=== PATIENT | male | born 1995 | race Hispanic/Latino ===

== ENCOUNTER 2019-02-23 21:32 | Inpatient (IN) | payer OTHER ==
[~2019-02-23] VITALS: Ht 167.6 cm; Wt 98.9 kg
[2019-02-23] MEDS ORDERED: ONDANSETRON HCL INJ 2MG/ML 2ML 2 MG/ML VIAL IV STA (22:09)
[2019-02-23] MEDS ORDERED: ACETAMINOPHEN 1000 MG/100 ML IV STA (22:09)
[2019-02-23] MEDS ORDERED: SODIUM CHLORIDE 0.9% 1000ML 1,000 ML IV ONE (22:15)
[2019-02-23 22:40] LABS: BASOPHILS % 0.3 % (0.0-1.0); EOSINOPHILS # (AUTO) 0.1 (0.0-0.4); EOSINOPHILS % 0.8 % (0.0-6.0); HEMATOCRIT 44.2 % (38.2-49.6); HEMOGLOBIN 15.7 g/dL (14.0-18.0); LYMPHOCYTES # (AUTO) 1.9 (1.0-3.2); LYMPHOCYTES % 15.7 % (18.0-39.1); MEAN CORPUSCULAR HEMOGLOBIN 31.7 pg (28-32); MEAN CORPUSCULAR HGB CONC 35.5 g/dL (31-35); MEAN CORPUSCULAR VOLUME 89.3 fL (81-99); MONOCYTES % 8.3 % (4.4-11.3); NEUTROPHILS # (AUTO) 8.9 (2.1-6.9); NEUTROPHILS % 74.5 % (38.7-80.0); PLATELET COUNT 185 x10e3/uL (140-360); RED BLOOD COUNT 4.95 x10e6/uL (4.3-5.7); RED CELL DISTRIBUTION WIDTH 13.2 % (11.7-14.4)
[2019-02-23 22:43] LABS: BILIRUBIN,URINE NEGATIVE (NEGATIVE); CLARITY,URINE CLEAR (CLEAR); COLOR,URINE YELLOW (YELLOW); LEUKOCYTE ESTERASE ,URINE NEGATIVE (NEGATIVE); NITRITE,URINE NEGATIVE (NEGATIVE); PROTEIN,URINE DIPSTICK NEGATIVE (NEGATIVE); URINE UROBILINOGEN 0.2 mg/dL (0.2 - 1)
[2019-02-23 22:48] LABS: KETONES,URINE 2+ (NEGATIVE)
[2019-02-23 22:49] LABS: AMYLASE 76 U/L (25-125)
[2019-02-23 22:58] LABS: BACTERIA,URINE RARE /HPF; EPITHELIAL CELLS,URINE RARE /LPF; RBC,URINE 0-5 /HPF (0-5); WBC,URINE (MAN) 0-5 /HPF (0-5)
[2019-02-23 23:00] LABS: ALANINE AMINOTRANSFERASE 23 IU/L (0-55); ALBUMIN 3.7 g/dL (3.5-5.0); ALBUMIN/GLOBULIN RATIO 0.7 (0.8-2.0); ALKALINE PHOSPHATASE 108 IU/L (40-150); ANION GAP 27.3 mmol/L (8-16); BLOOD UREA NITROGEN 11 mg/dL (7-26); BUN/CREATININE RATIO 11 (6-25); CALCIUM 9.7 mg/dL (8.4-10.2); CARBON DIOXIDE 12 mmol/L (22-29); CHLORIDE 96 mmol/L (98-107); CREATININE, SERUM 1.01 mg/dL (0.72-1.25); EST GLOMERULAR FILTRATION RATE > 60 ML/MIN (60-); POTASSIUM 4.3 mmol/L (3.5-5.1); SODIUM 131 mmol/L (136-145)
[2019-02-23 23:05] LABS: GLUCOSE 410 mg/dL (74-118)
--- NOTE | 2019-02-23 23:06 | NUR ---
LAB CALLED TO REPORT CRITICAL GLUCOSE LEVEL 410, INFORMED DR. MAHAJAN AND PRIMARY NURSE ENRIQUE HERRING.
[2019-02-23 23:27] LABS: LIPASE 141 U/L (8-78)
[2019-02-23] MEDS ORDERED: SODIUM CHLORIDE 0.9% 50ML 50 ML ONE (23:27)
[2019-02-23] MEDS ORDERED: IOPAMIDOL 370 MG/ML 200 ML INFUS..BTL INJ ONE (23:27)
[2019-02-24] VITALS (21 sets, daily range): BP systolic 92–147; BP diastolic 51–94
[2019-02-24] MEDS ORDERED: POTASSIUM CHLORIDE 20MEQ/100ML 200 ML IV PRN (00:15)
[2019-02-24] MEDS ORDERED: MAGNESIUM SULF 1GRAM/DEXTROSE 100 ML IV PRN (00:15)
--- NOTE | 2019-02-24 00:21 | Diagnostic Imaging Report ---
EXAM: CT Abdomen and Pelvis WITH contrast INDICATION: ^periumbilical pain, fever ^[id number] ^2345 ^Y COMPARISON: None. TECHNIQUE: Abdomen and pelvis were scanned utilizing a multidetector helical scanner from the lung base to the pubic symphysis after administration of IV contrast. Coronal and sagittal reformations were obtained. Dose modulation, iterative reconstruction, and/or weight based adjustment of the mA/kV was utilized to reduce the radiation dose to as low as reasonably achievable. Routine protocol was performed. Scan was performed when during portal venous phase. IV CONTRAST: 100 mL of Isovue-370 ORAL CONTRAST: Water COMPLICATIONS: None RADIATION DOSE: Total DLP: 733.81 mGy*cm Estimated effective dose: (DLP x 0.015 x size factor) mSv CTDIvol has been reviewed. It is below the limits set by the Radiation Protocol Committee (RPC). FINDINGS: LINES and TUBES: None. LOWER THORAX: Unremarkable HEPATOBILIARY: Hepatic steatosis. No focal hepatic lesions. No biliary ductal dilation. GALLBLADDER: No radio-opaque stones or sludge. No wall thickening. SPLEEN: No splenomegaly. PANCREAS: Peripancreatic edema. No focal masses, areas of decreased enhancement, or ductal dilatation. ADRENALS: No adrenal nodules KIDNEYS/URETERS: Kidneys enhance symmetrically. No hydronephrosis. No cystic or solid mass lesions. No stones. GI TRACT: No abnormal distention, wall thickening, or evidence of bowel obstruction. Appendix is normal. PELVIC ORGANS/BLADDER: Unremarkable. LYMPH NODES: No lymphadenopathy. VESSELS: Unremarkable. PERITONEUM / RETROPERITONEUM: No free air or fluid. BONES: Unremarkable. SOFT TISSUES: Unremarkable. IMPRESSION: 1. Acute pancreatitis. 2. Hepatic steatosis. Signed by: Dr. Haim Eddy MD on 02/24/2019 12:17 AM
[2019-02-24] MEDS ORDERED: MORPHINE SULFATE INJ 4 MG/ML INJ 1ML IV PRN (00:45)
[2019-02-24] MEDS ORDERED: ONDANSETRON HCL INJ 2MG/ML 2ML 2 MG/ML VIAL IV PRN (00:45)
[2019-02-24] MEDS: SODIUM CHLORIDE 0.9% 1000ML 1,000 ML IV SCH ×6 (00:48→19:52)
--- OUTSIDE RECORDS SUMMARY | 2019-02-24 00:52 | XMS REPORT ---
Author Author [facility] Address Unknown Phone Unavailable Care Team Providers Care Cash Manager Name Role Phone Gabriel MAHAJAN Unavailable Unavailable Problems This patient has no known problems. Allergies, Adverse Reactions, Alerts This patient has no known allergies or adverse reactions. Medications This patient has no known medications. Results Test Description Test Time Test Comments Text Results Atomic Results Result Comments CT ABDOMEN/PELVIS W 2019-02-24 00:11:00 [place] [address] Patient Name: MARGY GARNETT MR #: [id number] : 1995 Age/Sex: 23/M Req #: [id number] Adm Physician: Ordered by: KEYON MAHAJAN MD Report #: [id number] Location: ER Room/Bed: Procedure: [id number] CT/CT ABDOMEN/PELVIS W Exam Date: 02/23/19 Exam Time: 2344 REPORT STATUS: Signed EXAM: CT Abdomen and Pelvis WITH contrast INDIC ATION: periumbilical pain, fever [id number] Y COMPARISON: None. TECHNIQUE: Abdomen and pelvis were scanned utilizing a multidetector helical scanner from the lung base to the pubic symphysis after administration of IV contrast. Coronal and sagittal reformations were obtained. Dose modulation, iterative reconstruction, and/or weight based adjustment of the mA/kV was utilized to reduce the radiation dose to as low as reasonably achievable. Routine protocol was performed. Scan was performed when during portal venous phase. IV CONTRAST: 100 mL of Isovue-370 ORAL CONTRAST: Water COMPLICATIONS: None RADIATION DOSE: Total DLP: 733.81 mGy*cm Estimated effective dose: (DLP x 0.015 x size factor) mSv CTDIvol has been reviewed. It is below the limits set by the Radiation Protocol Committee (RPC). FINDINGS: LINES and TUBES: None. LOWER THORAX: Unremarkable HEPATOBILIARY: Hepatic steatosis. No focal hepatic lesions. No biliary ductal dilation. GALLBLADDER: No radio-opaque stones or sludge. No wall thickening. SPLEEN: No splenomegaly. PANCREAS: Peripancreatic edema. No focal masses, areas of decreased enhancement, or ductal dilatation. ADRENALS: No adrenal nodules KIDNEYS/URETERS: Kidneys enhance symmetrically. No hydronephrosis. No cystic or solid mass lesions. No stones. GI TRACT: No abnormal distention, wall thickening, or evidence of bowel obstruction. Appendix is normal. PELVIC ORGANS/BLADDER: Unremarkable. LYMPH NODES: No lymphadenopathy. VESSELS: Unremarkable. PERITONEUM / RETROPERITONEUM: No free air or fluid. BONES: Unremarkable. SOFT TISSUES: Unremarkable. IMPRESSION: 1. Acute pancreatitis. 2. Hepatic steatosis. Signed by: Dr. Haim Eddy MD on 02/24/2019 12:17 AM Dictated By: HAIM EDDY MD Transcribed By: KACIE on 02/24/1916 COPY TO: KEYON MAHAJAN MD
[2019-02-24] MEDS: INSULIN REGULAR, HUMAN 3ML VL 100 UNIT in SODIUM CHLORIDE 0.9% 99 ML IV SCH ×4 (00:57→09:50)
--- NOTE | 2019-02-24 03:00 | NUR ---
Received to 194 from ER for DKA. Placed on EKG, pulse ox & NBP for monitoring. IV NS @ 250ml/hr & Insulin @ 10 units/hr. Admission history, vaccine history & Initial admission assessment completed.
[2019-02-24] MEDS ORDERED: [UNRECOGNIZED DRUG - OTHER] PO (03:19)
--- NOTE | 2019-02-24 03:25 | NUR ---
BS 120. IVF changed to D5 1/2 @ 100ml/hr.
[2019-02-24] MEDS: DEXTROSE 5%/0.45% SOD CHL 1,000 ML IV SCH ×6 (03:40→19:53)
[2019-02-24 05:27] LABS: ANION GAP 23.8 mmol/L (8-16); BLOOD UREA NITROGEN 9 mg/dL (7-26); BUN/CREATININE RATIO 12 (6-25); CALCIUM 8.8 mg/dL (8.4-10.2); CARBON DIOXIDE 13 mmol/L (22-29); CHLORIDE 102 mmol/L (98-107); CREATININE, SERUM 0.73 mg/dL (0.72-1.25); EST GLOMERULAR FILTRATION RATE > 60 ML/MIN (60-); GLUCOSE 103 mg/dL (74-118); MAGNESIUM 2.7 MG/DL (1.3-2.1); POTASSIUM 3.8 mmol/L (3.5-5.1); SODIUM 135 mmol/L (136-145)
--- NOTE | 2019-02-24 07:42 | NUR ---
0715: blood glucose 117mg/dl increased d5 1/2ns to 175ml/hr from 150ml/hr. no change in insulin gtt rate at 10units/hr
[2019-02-24 08:45] LABS: ANION GAP 18.5 mmol/L (8-16); BLOOD UREA NITROGEN 8 mg/dL (7-26); BUN/CREATININE RATIO 11 (6-25); CARBON DIOXIDE 17 mmol/L (22-29); CHLORIDE 103 mmol/L (98-107); CREATININE, SERUM 0.72 mg/dL (0.72-1.25); EST GLOMERULAR FILTRATION RATE > 60 ML/MIN (60-); GLUCOSE 117 mg/dL (74-118); MAGNESIUM 2.7 MG/DL (1.3-2.1); POTASSIUM 3.5 mmol/L (3.5-5.1); SODIUM 135 mmol/L (136-145)
--- NOTE | 2019-02-24 09:15 | NUR ---
09:15AM BLOOD GLUCOSE 129MG/DL INCREASED D5 1/2NS RATE TO 200ML/HR. NO CHANGE IN INSULIN RATE
--- NOTE | 2019-02-24 11:20 | NUR ---
1120AM BLOOD GLUCOSE 134MG/DL. INCREASED D5 1/2NS RATE TO 225ML/HR PER DKA PROTOCOL MD ORDER. NO CHANGE IN INSULIN RATE.
[2019-02-24 12:33] LABS: ANION GAP 15.6 mmol/L (8-16); BLOOD UREA NITROGEN 5 mg/dL (7-26); BUN/CREATININE RATIO 7 (6-25); CALCIUM 9.1 mg/dL (8.4-10.2); CARBON DIOXIDE 19 mmol/L (22-29); CHLORIDE 103 mmol/L (98-107); EST GLOMERULAR FILTRATION RATE > 60 ML/MIN (60-); GLUCOSE 145 mg/dL (74-118); MAGNESIUM 2.5 MG/DL (1.3-2.1); POTASSIUM 3.6 mmol/L (3.5-5.1); SODIUM 134 mmol/L (136-145)
--- NOTE | 2019-02-24 13:15 | NUR ---
1315 BLOOD GLUCOSE 141MG/DL. NO CHANGE IN RATE OF IVF'S OR INSULIN. AWARE.
--- NOTE | 2019-02-24 14:53 | NUR ---
Nutrition Screen Note RD Recommendation for Physician: -Advance diet as tolerated to ADA/ low fat diet -Pt was not interested in any diet education. Handouts were given. Plan of Care: RD following, monitoring for tolerance and adequacy Nutrition reason for involvement: Diagnosis DKA, pancreatitis Primary Diagnose(s): DKA, Pancreatitis (alcohol, acute) PMH: DM Ht: 66in Wt: 218lb BMI: 35.2kg/m2 IBW: 142lb +/- 10% RD Assessment: (02/24) Chart reviewed. Labs and meds reviewed. 23yo M, who was admitted from home for DKA and pancreatitis. HbA1c at 11.4%. Lipase has trend down to normal. BG has trend down to 145 today. Visited pt in the room. Pt hasnt started on his liquid diet. 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 Pt has been drinking 5-6 cans of beer for over a year. Pt had some unexplained weight loss for the last 2 months. However, pt is not interested in any diet education or nutrition intervention during my visit. Handouts on low fat diet and alcohol vs DM were left on bedside. Will continue to monitor and follow. Current Diet: clear liquid diet Malnutrition Evaluation (02/24/2019) The patient does not meet criteria for a specified degree of malnutrition at this time. Will re-evaluate at follow-up as appropriate. Diet Education Needs Assessment: Diet education indicated, pt is not interested. Nutrition Care Level: low Signed: Savannah Pires, MS, RD, LD
[2019-02-24 17:10] LABS: ANION GAP 14.5 mmol/L (8-16); BLOOD UREA NITROGEN < 5 mg/dL (7-26); CALCIUM 9.3 mg/dL (8.4-10.2); CARBON DIOXIDE 21 mmol/L (22-29); CHLORIDE 103 mmol/L (98-107); CREATININE, SERUM 0.73 mg/dL (0.72-1.25); EST GLOMERULAR FILTRATION RATE > 60 ML/MIN (60-); GLUCOSE 134 mg/dL (74-118); MAGNESIUM 2.4 MG/DL (1.3-2.1); POTASSIUM 3.5 mmol/L (3.5-5.1); SODIUM 135 mmol/L (136-145)
[2019-02-24 17:11] LABS: BUN/CREATININE RATIO 7 (6-25)
--- NOTE | 2019-02-24 17:45 | NUR ---
dr. quinn updated with patient current status and temperature. blood culters ordered. with other new orders. no s/s alcohol withdrawal noted at this time.
--- NOTE | 2019-02-24 17:49 | Diagnostic Imaging Report ---
EXAMINATION: CHEST SINGLE (PORTABLE) INDICATION: Fever COMPARISON: FINDINGS: TUBES and LINES: EKG leads overlie the chest. LUNGS: The lung volumes are normal. No focal consolidation or pulmonary edema. PLEURA: No pleural effusion or pneumothorax. HEART AND MEDIASTINUM: The cardiomediastinal silhouette is normal in size and contour. BONES AND SOFT TISSUES: No acute fracture or dislocation. UPPER ABDOMEN: No free air under the diaphragm. IMPRESSION: No focal pneumonia or pulmonary edema. Signed by: Bhumika Natarajan MD on 02/24/2019 5:45 PM
--- NOTE | 2019-02-24 18:16 | NUR ---
Dr. Guadalupe consulted and notified. new orders received for patient.
[2019-02-24] MEDS ORDERED: INSULIN REGULAR, HUMAN 3ML VL 100 UNIT in SODIUM CHLORIDE 0.9% 100 ML IV PRN ×2 (18:30)
[2019-02-24 19:39] LABS: BILIRUBIN,URINE NEGATIVE (NEGATIVE); CLARITY,URINE CLEAR (CLEAR); COLOR,URINE YELLOW (YELLOW); KETONES,URINE NEGATIVE (NEGATIVE); LEUKOCYTE ESTERASE ,URINE NEGATIVE (NEGATIVE); NITRITE,URINE NEGATIVE (NEGATIVE); PROTEIN,URINE DIPSTICK NEGATIVE (NEGATIVE); URINE UROBILINOGEN 0.2 mg/dL (0.2 - 1)
[2019-02-24 19:52] LABS: BACTERIA,URINE RARE /HPF
[2019-02-24] MEDS: PIPER-TAZ 3.375 GM 50 ML IV SCH (20:20)
[2019-02-24] MEDS: ENOXAPARIN SOD INJ 40 MG/0.4 ML SYR SC SCH (20:20)
[2019-02-24 21:39] LABS: ANION GAP 13.4 mmol/L (8-16); BLOOD UREA NITROGEN < 5 mg/dL (7-26); BUN/CREATININE RATIO 7 (6-25); CALCIUM 9.3 mg/dL (8.4-10.2); CARBON DIOXIDE 22 mmol/L (22-29); CHLORIDE 105 mmol/L (98-107); CREATININE, SERUM 0.74 mg/dL (0.72-1.25); EST GLOMERULAR FILTRATION RATE > 60 ML/MIN (60-); GLUCOSE 166 mg/dL (74-118); MAGNESIUM 2.3 MG/DL (1.3-2.1); POTASSIUM 3.4 mmol/L (3.5-5.1); SODIUM 137 mmol/L (136-145)
[2019-02-25] VITALS (21 sets, daily range): BP systolic 100–145; BP diastolic 58–99
[2019-02-25] MEDS: ACETAMINOPHEN 325 MG TAB PO PRN ×2 (00:37→19:40)
--- NOTE | 2019-02-25 00:43 | History and Physical ---
CHIEF COMPLAINT: Abdominal pain and DKA. HISTORY OF PRESENT ILLNESS: 23-year-old male with chronic alcohol abuse, type 2 diabetic diagnosed 6 years ago, very noncompliant, has not taken any of his oral anti-glycemic medications for weeks, comes into the ED with complaints of abdominal pain, decreased oral intake, nausea and vomiting. The patient was found to be in DKA. In the ER, he was started on the insulin protocol. Endocrinology was consulted. Currently, his glucose is better controlled and his gap is closed. The patient endorses he drinks about 8 to 10 beers per day and he has been doing this for years. He does state that he does work on a daily basis. 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 Currently not on any insulin. The patient was seen and evaluated at bedside in the ICU. He is currently doing well with no other complaints. REVIEW OF SYSTEMS: Pertinent positives: Abdominal pain, decreased oral intake. Pertinent negatives: Denies any chest pain, palpitation, dysuria, hematuria, frequency, urgency, lightheadedness, dizziness, cough, congestion, fever, musculoskeletal pain, or any other complaints. The rest of 14-point review of systems have been reviewed with the patient and are negative. ALLERGIES: NO KNOWN DRUG ALLERGIES. HOME MEDICATIONS: None. PAST MEDICAL HISTORY: Type 2 diabetes and chronic alcohol abuse. PAST SURGICAL HISTORY: None. FAMILY HISTORY: Hypertension and diabetes. SOCIAL HISTORY: No drugs. Social smoker. He is a chronic drinker 8 to 10 beers daily. PHYSICAL EXAMINATION: VITAL SIGNS: Temperature is 101.4, pulse 98, respiratory rate is 24, pulse ox 97%, and blood pressure 147/87. LABORATORY DATA: Lab findings show white count 11.9, hemoglobin 15, hematocrit 44, and platelets of 185. Chemistry; sodium 135, potassium 3.5, chloride 103, bicarb 21, anion gap of 14, BUN is less than 5, creatinine is 0.73, glucose is 134. Calcium 9.3, magnesium 2.4, total bilirubin is 0.6, AST is 22. On admission, anion gap was 27, bicarbonate was . Rest of the electrolytes are stable. MICROBIOLOGY: None. Urinalysis 2+ ketones. IMAGING STUDIES: CT abdomen and pelvis acute pancreatitis, hepatic steatosis. Chest x-ray, no focal pulmonary edema. PHYSICAL EXAMINATION: GENERAL: Not in acute distress. Alert and oriented x3. Cooperative on examination. HEENT: Head is normocephalic and atraumatic. Eyes; pupils are equal, round, and reactive to light bilaterally. NECK: Supple. Good range of motion throughout. No evidence of erythema, exudates in the posterior pharynx. Has poor dentition. PULMONARY: Clear to auscultation bilaterally. No wheezing, no rales, no rhonchi, no crackles appreciated. CARDIOVASCULAR: Positive S1 and S2. No murmurs, rubs, or gallops appreciated. ABDOMEN: Soft, nondistended, and nontender to palpation. Bowel sounds present. MUSCULOSKELETAL: Strength is 5/5 throughout. No edema. No evidence of any muscle deficits on examination. No weakness appreciated. NEUROLOGICAL: Cranial nerves 2 through 12 grossly intact. No evidence of any neurological deficits on exam. SKIN: Intact. Warm to touch. Good cap refill. PSYCHIATRIC: Normal affect and mood. EXTREMITIES: No edema. Good range of motion throughout. IMPRESSION: 1. Diabetic ketoacidosis. 2. Chronic alcohol abuse. 3. Acute pancreatitis. 4. Hepatic steatosis. 5. Dehydration with decreased oral intake. 6. He did have a fever of 101.5. PLAN: At this time, the patient is currently on a DKA protocol. His gap is closed. Sugars are better controlled and improved. Endocrinology has been consulted. I had a long discussion with the patient about alcohol cessation. It does not seem like he is interested at all at this time. I will continue to reiterate this on a daily basis. We will continue with clear liquid diet advance as tolerated. He is currently not hungry. He does not have any abdominal pain and his CT imaging is consistent with acute pancreatitis. The patient had a fever of 101.5, I am not sure exactly what this is from because he does not have any current infection, but it could be an inflammation from underlying acute pancreatitis. At this time, we will put him on IV Zosyn. Blood and urine cultures collected. Chest x-ray has been collected as well. I did discuss this with the nurse, but in the event the patient does go into withdrawals from his alcohol, to call me, we could start him on Librium. Currently, he does not have any evidence of DTs. He does drink a 12-pack of beer on a daily basis. Otherwise, we will put him on Lovenox for DVT prophylaxis as well and get a.m. labs. I spent more than 40 minutes of critical care time on this case. MD RA Marcos/YUNIOR /[id number]
[2019-02-25 01:07] LABS: BLOOD UREA NITROGEN < 5 mg/dL (7-26); CHLORIDE 116 mmol/L (98-107); EST GLOMERULAR FILTRATION RATE > 60 ML/MIN (60-); GLUCOSE 145 mg/dL (74-118); SODIUM 141 mmol/L (136-145)
[2019-02-25 01:16] LABS: BUN/CREATININE RATIO 8 (6-25)
[2019-02-25 01:17] LABS: ANION GAP 10.7 mmol/L (8-16); CALCIUM 6.5 mg/dL (8.4-10.2); CARBON DIOXIDE 17 mmol/L (22-29); POTASSIUM 2.7 mmol/L (3.5-5.1)
[2019-02-25] MEDS: PIPER-TAZ 3.375 GM 50 ML IV SCH ×3 (01:20→17:26)
[2019-02-25] MEDS ORDERED: POTASSIUM CHLORIDE 20MEQ/100ML 100 ML ONE (01:26)
[2019-02-25] MEDS ORDERED: SODIUM CHLORIDE 0.9% 250ML 250 ML ONE (01:29)
[2019-02-25 05:26] LABS: BASOPHILS % 0.4 % (0.0-1.0); EOSINOPHILS # (AUTO) 0.2 (0.0-0.4); EOSINOPHILS % 1.3 % (0.0-6.0); HEMATOCRIT 40.2 % (38.2-49.6); HEMOGLOBIN 13.5 g/dL (14.0-18.0); LYMPHOCYTES # (AUTO) 1.9 (1.0-3.2); LYMPHOCYTES % 16.9 % (18.0-39.1); MEAN CORPUSCULAR HEMOGLOBIN 30.7 pg (28-32); MEAN CORPUSCULAR HGB CONC 33.6 g/dL (31-35); MEAN CORPUSCULAR VOLUME 91.4 fL (81-99); MONOCYTES # (AUTO) 1.1 (0.2-0.8); MONOCYTES % 9.6 % (4.4-11.3); NEUTROPHILS # (AUTO) 8.1 (2.1-6.9); NEUTROPHILS % 71.4 % (38.7-80.0); PLATELET COUNT 151 x10e3/uL (140-360); RED CELL DISTRIBUTION WIDTH 13.4 % (11.7-14.4)
[2019-02-25 05:43] LABS: ALANINE AMINOTRANSFERASE 18 IU/L (0-55); ALBUMIN 2.8 g/dL (3.5-5.0); ALBUMIN/GLOBULIN RATIO 0.7 (0.8-2.0); ALKALINE PHOSPHATASE 82 IU/L (40-150); ANION GAP 10.9 mmol/L (8-16); BLOOD UREA NITROGEN < 5 mg/dL (7-26); CALCIUM 9.3 mg/dL (8.4-10.2); CARBON DIOXIDE 24 mmol/L (22-29); CHLORIDE 103 mmol/L (98-107); CREATININE, SERUM 0.79 mg/dL (0.72-1.25); EST GLOMERULAR FILTRATION RATE > 60 ML/MIN (60-); GLUCOSE 198 mg/dL (74-118); POTASSIUM 3.9 mmol/L (3.5-5.1); SODIUM 134 mmol/L (136-145)
[2019-02-25] MEDS: DEXTROSE 5%/0.45% SOD CHL 1,000 ML IV SCH ×2 (05:51→14:38)
[2019-02-25 05:55] LABS: BUN/CREATININE RATIO 6 (6-25)
[2019-02-25 06:11] LABS: CHOL/HDL RATIO 9.7 (3.9-4.7); CHOLESTEROL 290 MD/DL (0-199); HDL CHOLESTEROL 30 MG/DL (40-60); TRIGLYCERIDES 519 MG/DL (0-149)
[2019-02-25] MEDS ORDERED: INSULIN LISPRO 100 UNIT/1 ML 3ML VIAL SQ SCH (14:30)
[2019-02-25 15:06] LABS: FREE T4 (FREE THYROXINE) 0.88 ng/dL (0.8-1.8); THYROID STIMULATING HORMONE 0.963 uIU/mL (0.350-4.940)
[2019-02-25] MEDS: INSULIN LISPRO 100 UNIT/1 ML 3ML VIAL SQ SCH ×3 (16:30→20:33)
--- NOTE | 2019-02-25 16:53 | Consultation ---
DATE OF CONSULTATION: 02/25/2019 Endocrine Consultation The patient of Dr. Gaffney. Thank you very much for referring this patient. HISTORY OF PRESENT ILLNESS: This is a 23-year-old gentleman who is referred to me for evaluation of uncontrolled diabetes mellitus and diabetic ketoacidosis. The patient came to the hospital because of abdominal pain and nausea. On further evaluation, his blood sugar was found to be 410. His anion gap was 27.3. According to the patient, he is a known diabetic for almost 3-4 years and has been on Jardiance. The patient has not taken any medication for about a month to 6 weeks. He also has history of hyperlipidemia. FAMILY HISTORY: Diabetes mellitus. SOCIAL HISTORY: The patient does smoke and he also drinks alcohol. PHYSICAL EXAMINATION: GENERAL: Today, the patient is alert, awake, little bit of pain. He is moderately overweight. VITAL SIGNS: His heart rate is around 100. Blood pressure is 110/70 mmHg. HEENT: Essentially unremarkable. Thyroid is palpable. Clinically, he is near euthyroid. CHEST: Bilateral vesicular breathing. He has mild bronchospasm. CARDIOVASCULAR: First and second heart sounds. There is no third or fourth heart sounds with the systolic grade 2/6. ABDOMEN: Distended abdomen. Slight tenderness in the upper epigastric area. EXTREMITIES: He has evidence of diabetic sensory neuropathy in both lower extremities. LABORATORY DATA: His blood sugars have improved on insulin drip and his anion gap is down to around 10.7. His lipids are elevated. His hemoglobin A1c is 11.4. CLINICAL IMPRESSION: Diabetes mellitus type 2, uncontrolled with complication, diabetic ketoacidosis, hyperlipidemia, rule out pancreatitis. PLAN: At this time is today probably insulin drip. Advance his diet. Monitor his blood sugars closely. The patient is very scared about taking the insulin shots. I have reassured him and the patient needs extensive diabetic and dietary education. Thank you again for referring this patient. I will be following this patient with you. MD JANE Ribeiro/YUNIOR /[id number] VIET
[2019-02-25] MEDS: ENOXAPARIN SOD INJ 40 MG/0.4 ML SYR SC SCH (17:20)
--- NOTE | 2019-02-25 17:37 | NUR ---
Dr. Guadalupe gave orders to progress patients diet. Orders given to d/c insulin drip at 1730 and transition to SQ insulin. Dr. Guadalupe and Dr. Gaffney gave orders for patient to transfer to medical-surgical floor once insulin drip d/c. Patient does not appear to be having any s/s distress at this time. Administering SQ injections teachings and demonstration given to patient and significant other. Will continue to monitor.
--- NOTE | 2019-02-25 19:18 | Progress Note ---
DATE: 02/25/2019 Medicine Progress Note SUBJECTIVE: The patient is doing much better today with no complaints. He is very hungry. He is about to be weaned off the insulin drip. Endocrinology following. PHYSICAL EXAMINATION: VITAL SIGNS: Temperature 100.3, pulse 109, respiratory rate is 17, blood pressure is 144/89. GENERAL: Not in acute distress. Alert and oriented x3. Cooperative on examination. HEENT: Head is normocephalic and atraumatic. Eyes; pupils are equal, round, and reactive to light bilaterally. Extraocular movements are intact bilaterally. Throat, no evidence of erythema or exudates in the posterior pharynx. Has poor dentition. NECK: Supple. Good range of motion. PULMONARY: Clear to auscultation bilaterally. No wheezing, no rales, no rhonchi, no crackles appreciated. CARDIOVASCULAR: Positive S1, S2. No murmurs, rubs, or gallops appreciated. ABDOMEN: Soft, nondistended, and nontender to palpation. Bowel sounds present. MUSCULOSKELETAL: Strength is 5/5 throughout. No evidence of any muscle deficits on examination. No weakness appreciated. NEUROLOGICAL: Cranial nerves 2 through 12 grossly intact. No evidence of any neurological deficits on exam. SKIN: Intact. Warm to touch. Good cap refill. PSYCHIATRIC: Normal affect and mood. EXTREMITIES: No edema. Good range of motion throughout. LABORATORY DATA: His lab findings show white count 9.4, hemoglobin 13.5, hematocrit is 40, platelets of 151. Chemistry; sodium is 134, potassium is 3.9 chloride 103, carbon dioxide 103, anion gap of 10, BUN less than 5, creatinine is 0.79, glucose is 198. MICROBIOLOGY: Blood cultures no growth. IMAGING STUDIES: Chest x-ray shows no focal pneumonia or pulmonary edema. IMPRESSION: 1. Diabetic ketoacidosis. 2. Chronic alcohol abuse. 3. Acute pancreatitis. 4. Hepatic steatosis. 5. Dehydration with decreased oral intake. 6. Fever of unknown etiology. PLAN: At this time, he will be weaned off the DKA protocol per Endocrinology. His diet has been advanced from clear liquid, then will be advanced to solid food, diabetic. He will be on insulin upon discharge. His vital signs are much stable. He did have a temp early this afternoon. Blood cultures were negative. I am concerned that he may be possibly undergoing some underlying withdrawals, but there is no clinical evidence except for fever. We will continue to monitor very closely. We will see if he is able to tolerate his diet well. Continue with IV antibiotics. Blood cultures, no growth. Imaging study shows no evidence of infection at this time. His white count is slightly elevated. We will repeat labs in the morning. He is on Lovenox for DVT prophylaxis. Alcohol cessation was discussed with the patient. MD RA Marcos/YUNIOR /[id number]
[2019-02-25] MEDS ORDERED: INSULIN GLARGINE 100 UNITS/ML VIAL SQ SCH (21:00)
--- NOTE | 2019-02-25 23:00 | NUR ---
RECEIVED PATIENT IN STABLE CONDITION, NO DISTRESS NOTED. PATIENT IS AOX4, GIRLFRIEND IS AT BEDSIDE. BED IS LOCKED AND IN LOWEST POSITION, CALL LIGHT IS WITHIN EASY REACH, WILL CONTINUE TO MONITOR.
--- NOTE | 2019-02-25 23:25 | NUR ---
REMOVED IV FROM PATIENT'S RIGHT AC.
[2019-02-26] VITALS (8 sets, daily range): BP systolic 110–149; BP diastolic 57–96
[2019-02-26] MEDS: ACETAMINOPHEN 325 MG TAB PO PRN ×2 (00:18→21:32)
[2019-02-26] MEDS: DEXTROSE 5%/0.45% SOD CHL 1,000 ML IV SCH ×3 (01:04→21:04)
[2019-02-26] MEDS: PIPER-TAZ 3.375 GM 50 ML IV SCH ×3 (02:21→17:49)
[2019-02-26 05:30] LABS: BASOPHILS % 0.5 % (0.0-1.0); EOSINOPHILS # (AUTO) 0.3 (0.0-0.4); HEMATOCRIT 40.8 % (38.2-49.6); HEMOGLOBIN 13.1 g/dL (14.0-18.0); LYMPHOCYTES # (AUTO) 1.9 (1.0-3.2); LYMPHOCYTES % 21.1 % (18.0-39.1); MEAN CORPUSCULAR HEMOGLOBIN 30.3 pg (28-32); MEAN CORPUSCULAR HGB CONC 32.1 g/dL (31-35); MEAN CORPUSCULAR VOLUME 94.4 fL (81-99); MONOCYTES # (AUTO) 0.9 (0.2-0.8); MONOCYTES % 10.5 % (4.4-11.3); NEUTROPHILS # (AUTO) 5.6 (2.1-6.9); NEUTROPHILS % 64.4 % (38.7-80.0); PLATELET COUNT 147 x10e3/uL (140-360); RED BLOOD COUNT 4.32 x10e6/uL (4.3-5.7); RED CELL DISTRIBUTION WIDTH 13.8 % (11.7-14.4)
[2019-02-26 05:44] LABS: BLOOD UREA NITROGEN 8 mg/dL (7-26); BUN/CREATININE RATIO 11 (6-25); CALCIUM 9.2 mg/dL (8.4-10.2); CARBON DIOXIDE 21 mmol/L (22-29); CHLORIDE 103 mmol/L (98-107); CREATININE, SERUM 0.75 mg/dL (0.72-1.25); EST GLOMERULAR FILTRATION RATE > 60 ML/MIN (60-); GLUCOSE 211 mg/dL (74-118); SODIUM 134 mmol/L (136-145)
[2019-02-26] MEDS: INSULIN LISPRO 100 UNIT/1 ML 3ML VIAL SQ SCH ×7 (08:34→21:00)
[2019-02-26] MEDS: FENOFIBRATE 145 MG TAB PO SCH (08:34)
--- NOTE | 2019-02-26 16:08 | NUR ---
Nutrition Follow-up Note RD Recommendation for Physician: - Rec adding low fat to current ADA diet - RD provided diet education on low fat diet. Plan of Care: RD following, monitoring for tolerance and adequacy, diet education Nutrition reason for involvement: Follow up, RN consult Primary Diagnose(s): DKA, Pancreatitis (alcohol, acute) PMH: DM Ht: 66in Wt: 218lb BMI: 35.2kg/m2 IBW: 142lb +/- 10% RD Assessment: (02/26) Re-visit pt in the room per RN request for diet education. RD provided education on alcohol intake and low fat diet as requested. All questions have been answered. Handouts were provided. Will continue to monitor and follow. (02/24) Chart reviewed. Labs and meds reviewed. 23yo M, who was admitted from home for DKA and pancreatitis. HbA1c at 11.4%. Lipase has trend down to normal. BG has trend down to 145 today. Visited pt in the room. Pt hasnt started on his liquid diet. 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 Pt has been drinking 5-6 cans of beer for over a year. Pt had some unexplained weight loss for the last 2 months. However, pt is not interested in any diet education or nutrition intervention during my visit. Handouts on low fat diet and alcohol vs DM were left on bedside. Will continue to monitor and follow. Current Diet: ADA 2000 Malnutrition Evaluation (02/24/2019) The patient does not meet criteria for a specified degree of malnutrition at this time. Will re-evaluate at follow-up as appropriate. Diet Education Needs Assessment: (02/26) RN requested for RD to revisit for diet education on pancreatitis. (02/24) Diet education indicated, pt is not interested. Learner(s): pt, Time spent: 20 minutes Barriers: none; h/o non-comp Cultural/Language Modifications: No cultural/language modifications noted. Readiness: acceptance Method: explanation/ discussion, handout Topics: DM diet/pancreatitis ed. (alcohol intake, low fat diet, portion control) Understanding/Compliance: fair compliance expected, needs reinforcement, all questions have been answered Nutrition Care Level: low Signed: Savannah Pires, MS, RD, LD
[2019-02-26] MEDS: ENOXAPARIN SOD INJ 40 MG/0.4 ML SYR SC SCH (17:00)
--- NOTE | 2019-02-26 19:05 | Progress Note ---
DATE: 02/26/2019 Medicine Progress Note SUBJECTIVE: The patient is actually doing well today with no complaints. He has been cleared for discharge by Endocrine. The only issues that he still has fever that was overnight. He has no symptoms whatsoever. This could be low-grade fever from underlying acute pancreatitis. He is otherwise tolerating diet well. Insulin scripts have been written in the chart. I will monitor him overnight and see how he does prior to being discharged. PHYSICAL EXAMINATION: VITAL SIGNS: Temperature is 99.6, but T-max was 101.5 last night. His blood cultures are negative. He is still on IV antibiotics. He has no symptoms. If he has a fever again my concern that he may have a pseudocyst and may need to be re-scanned at that time and may need to get a GI consultation. GENERAL: Not in acute distress. Alert and oriented x3. Cooperative on examination. HEENT: Head is normocephalic and atraumatic. Eyes; pupils are equal, round, and reactive to light bilaterally. Extraocular movements are intact bilaterally. Throat, no evidence of erythema or exudates in the posterior pharynx. Has poor dentition. NECK: Supple. Good range of motion. PULMONARY: Clear to auscultation bilaterally. No wheezing, no rales, no rhonchi, no crackles appreciated. CARDIOVASCULAR: Positive S1, S2. No murmurs, rubs, or gallops appreciated. ABDOMEN: Soft, nondistended, and nontender to palpation. Bowel sounds present. MUSCULOSKELETAL: Strength is 5/5 throughout. No evidence of any muscle deficits on examination. No weakness appreciated. NEUROLOGICAL: Cranial nerves II through XII grossly intact. No evidence of any neurological deficits on exam. SKIN: Intact. Warm to touch. Good cap refill. PSYCHIATRIC: Normal affect and mood. EXTREMITIES: No edema. Good range of motion throughout. LABORATORY DATA: White count 8.7, hemoglobin 13, hematocrit is 41, and platelets of 147. Chemistry; sodium 134, potassium 4, chloride 100, bicarb 29, anion gap of 14, BUN 10, creatinine 0.75, glucose 211, calcium 9.2. Urinalysis negative. MICROBIOLOGY: Blood cultures no growth. IMAGING STUDIES: None. IMPRESSION: 1. Diabetic ketoacidosis, resolved. 2. Chronic alcohol abuse. 3. Acute pancreatitis. 4. Hepatic steatosis. 5. Dehydration with decreased oral intake. 6. Fever, could be secondary to acute pancreatitis. PLAN: At this time, his glucose levels is better controlled. He is on insulin now. Prescriptions for home Lantus and Humalog have been written and placed in the chart. Appreciated Endocrinology recommendations. He is tolerating his diet well. The only issue is fever. His blood cultures were negative. He is on IV antibiotics. He has no symptoms. My concern that he had acute pancreatitis this could be a forming pseudocyst. If he has a fever overnight, I will go ahead and consider getting a CT scan of his abdomen with IV contrast to rule out any kind of pseudocyst and if it is positive, I will go ahead and consider getting a GI consultation. If he is afebrile for the next 24 hours and is doing well since he is tolerating diet, I will go ahead and consider discharge the patient home. I discussed this with the patient and the nursing staff taking care of him. Otherwise, he verbalized understanding. MD RA Marcos/YUNIOR /[id number]
--- NOTE | 2019-02-26 19:20 | NUR ---
Patient received sitting up in bed. AAO x 4. Patient had no /o pain. Respirations even and non-labored. Fall precautions implemented. Patient instructed to call for assistance when needed. Call light within reach.
[2019-02-26] MEDS: INSULIN GLARGINE 100 UNITS/ML VIAL SQ SCH (21:00)
--- NOTE | 2019-02-26 22:30 | NUR ---
Patient transferred from Room 208 to Room 209 along with belongings.
[2019-02-27] VITALS (8 sets, daily range): BP systolic 122–151; BP diastolic 61–84
[2019-02-27] MEDS: PIPER-TAZ 3.375 GM 50 ML IV SCH ×3 (02:00→17:54)
--- NOTE | 2019-02-27 07:00 | NUR ---
Shift report given to oncoming nurse.
[2019-02-27] MEDS: FENOFIBRATE 145 MG TAB PO SCH (08:46)
[2019-02-27] MEDS: INSULIN LISPRO 100 UNIT/1 ML 3ML VIAL SQ SCH ×7 (08:46→21:00)
[2019-02-27] MEDS: ENOXAPARIN SOD INJ 40 MG/0.4 ML SYR SC SCH (17:00)
--- NOTE | 2019-02-27 17:18 | Diagnostic Imaging Report ---
EXAM: CT Abdomen and Pelvis WITH intravenous contrast INDICATION: Pancreatitis COMPARISON: CT abdomen pelvis of 02/23/2019 TECHNIQUE: Abdomen and pelvis were scanned utilizing a multidetector helical scanner from the lung base to the pubic symphysis after administration of IV contrast. Coronal and sagittal reformations were obtained. Routine protocol was performed. Scan was performed when during portal venous phase. IV CONTRAST: 100 mL of Isovue-370 ORAL CONTRAST: Water COMPLICATIONS: None RADIATION DOSE: Total DLP: 725.7 mGy*cm Dose modulation, iterative reconstruction, and/or weight based adjustment of the mA/kV was utilized to reduce the radiation dose to as low as reasonably achievable. FINDINGS: LOWER THORAX: Normal. HEPATOBILIARY: Mild diffuse hypoattenuation of the hepatic parenchyma. No focal liver lesions. No biliary ductal dilatation. The gallbladder appears unremarkable. SPLEEN: No splenomegaly. PANCREAS: No significant interval change in appearance of fat stranding and small amount of free fluid surrounding the pancreatic tail and extending inferiorly along the posterior pararenal space. The pancreatic parenchyma enhances homogeneously. No focal abscess. ADRENALS: No adrenal nodules. KIDNEYS/URETERS: No hydronephrosis, stones, or solid mass lesions. PELVIC ORGANS/BLADDER: Unremarkable. PERITONEUM / RETROPERITONEUM: Peripancreatic fluid as above. No free air or ascites. LYMPH NODES: No lymphadenopathy. VESSELS: Unremarkable. GI TRACT: No distention or wall thickening. Normal appendix. Increased stool burden in the transverse, descending, and sigmoid colon and rectum compared to the prior study. BONES AND SOFT TISSUES: Unremarkable. IMPRESSION: Unchanged findings of pancreatitis. No evidence of necrosis or peripancreatic abscess. Hepatic steatosis. Signed by: Bhumika Natarajan MD on 02/27/2019 5:14 PM
[2019-02-27] MEDS ORDERED: SODIUM CHLORIDE 0.9% 50ML 50 ML ONE (18:19)
[2019-02-27] MEDS ORDERED: IOPAMIDOL 370 MG/ML 200 ML INFUS..BTL INJ ONE (18:19)
--- NOTE | 2019-02-27 19:10 | NUR ---
Walking rounds performed. Patient is in no distress and no pain. Family at the bedside. Updated them on plan of care and answered questions accordingly. at the bedside to stay with patient. Call graf within reach.
--- NOTE | 2019-02-27 19:13 | Progress Note ---
DATE: 02/27/2019 Medicine Progress Note SUBJECTIVE: The patient continues to have a low-grade temperature in the middle of the night. Of note, his temperature last night was 100.7. Current temperature is 98.8. The patient does report that he does remember when he felt very warm. He does endorse still some abdominal pain when he eats. He did come in with acute pancreatitis as well as DKA. PHYSICAL EXAMINATION: VITAL SIGNS: Temperature 98.8, pulse 99, respiratory rate is 20, blood pressure 137/75, pulse ox 97% on room air. GENERAL: Not in acute distress. Alert and oriented x3. Cooperative on examination. HEENT: Head is normocephalic and atraumatic. Eyes; pupils are equal, round, and reactive to light bilaterally. Extraocular movements are intact bilaterally. Throat, no evidence of erythema or exudates in the posterior pharynx. Has poor dentition. NECK: Supple. Good range of motion. PULMONARY: Clear to auscultation bilaterally. No wheezing, no rales, no rhonchi, no crackles appreciated. CARDIOVASCULAR: Positive S1, S2. No murmurs, rubs, or gallops appreciated. ABDOMEN: Soft, nondistended, and nontender to palpation. Bowel sounds present. MUSCULOSKELETAL: Strength is 5/5 throughout. No evidence of any muscle deficits on examination. No weakness appreciated. NEUROLOGICAL: Cranial nerves II through XII grossly intact. No evidence of any neurological deficits on exam. SKIN: Intact. Warm to touch. Good cap refill. PSYCHIATRIC: Normal affect and mood. EXTREMITIES: No edema. Good range of motion throughout. LAB FINDINGS: Show white count 8.7, hemoglobin 13, hematocrit is 41, and platelets of 147. Chemistry; sodium is 134, potassium is 4, chloride is 103, bicarbonate is 21, anion gap of 14, BUN is 8, creatinine is 0.75, A1c is 11, lipase for today is pending. LDL was undetectable, triglycerides was 519. MICROBIOLOGY: Negative. IMAGING STUDY: CT abdomen and pelvis repeat pending. IMPRESSION: 1. Diabetic ketoacidosis, resolved. 2. Chronic alcohol abuse. 3. Acute pancreatitis. 4. Hepatic steatosis. 5. Dehydration with decreased oral intake, resolved. 6. Fever secondary to possibly acute pancreatitis. 7. Abdominal pain concerning for acute pancreatitis still present. PLAN: At this time, his glucose levels are well controlled. He is on insulin now doing well. He is on a diabetic diet. He will go home on Lantus and Humalog and which the script is already written. The only concern I have is that he continues to have this low-grade fever 100.7 documented. I did go ahead and order a CT abdomen and pelvis with IV contrast. I will go ahead and consult with GI. He continues to complain of some abdominal pain. If he is afebrile within the next 24 hours and tolerating diet, possibly able to be going home tomorrow, but he still continues to have this low-grade fever un-explanatory. I still feel that this is likely due to underlying acute pancreatitis. The patient is currently doing very well. He is alert and oriented x4. He has no other issues except some mild abdominal pain. We will continue same plan of care and monitor closely. MD RA Marcos/YUNIOR /[id number]
--- NOTE | 2019-02-27 19:32 | NUR ---
Patient received sitting up in bed. AAO x 4. No acute distress noted. Safety measures implemented. Call light within reach.
[2019-02-27] MEDS: INSULIN GLARGINE 100 UNITS/ML VIAL SQ SCH (21:00)
[2019-02-28] VITALS: BP 117/72
[2019-02-28] MEDS: PIPER-TAZ 3.375 GM 50 ML IV SCH ×2 (02:30→10:17)
--- NOTE | 2019-02-28 02:31 | NUR ---
Dr. Samara Kaplan here to see patient. New order received for Dietary Consult----Low fat diet.
[2019-02-28 04:00] VITALS: BP 110/56
[2019-02-28 05:41] LABS: BASOPHILS % 0.4 % (0.0-1.0); EOSINOPHILS # (AUTO) 0.3 (0.0-0.4); EOSINOPHILS % 3.4 % (0.0-6.0); HEMATOCRIT 40.2 % (38.2-49.6); LYMPHOCYTES # (AUTO) 2.2 (1.0-3.2); LYMPHOCYTES % 29.9 % (18.0-39.1); MEAN CORPUSCULAR HGB CONC 32.3 g/dL (31-35); MEAN CORPUSCULAR VOLUME 92.6 fL (81-99); MONOCYTES # (AUTO) 0.9 (0.2-0.8); MONOCYTES % 11.8 % (4.4-11.3); NEUTROPHILS # (AUTO) 3.9 (2.1-6.9); NEUTROPHILS % 54.2 % (38.7-80.0); PLATELET COUNT 239 x10e3/uL (140-360); RED BLOOD COUNT 4.34 x10e6/uL (4.3-5.7); RED CELL DISTRIBUTION WIDTH 13.3 % (11.7-14.4)
[2019-02-28 06:01] LABS: ANION GAP 14.3 mmol/L (8-16); BLOOD UREA NITROGEN 10 mg/dL (7-26); BUN/CREATININE RATIO 10 (6-25); CALCIUM 10.2 mg/dL (8.4-10.2); CARBON DIOXIDE 28 mmol/L (22-29); CHLORIDE 99 mmol/L (98-107); CREATININE, SERUM 0.99 mg/dL (0.72-1.25); EST GLOMERULAR FILTRATION RATE > 60 ML/MIN (60-); GLUCOSE 195 mg/dL (74-118); POTASSIUM 4.3 mmol/L (3.5-5.1); SODIUM 137 mmol/L (136-145)
--- NOTE | 2019-02-28 07:06 | NUR ---
bedside rounds done, received patient lying flat in bed, AAOX4. denies pain at this time. call light within reach and instructed to call for assistance using call light.
--- NOTE | 2019-02-28 07:12 | NUR ---
Walking rounds done. Shift report given to oncoming nurse regarding patient status.
[2019-02-28] MEDS: INSULIN LISPRO 100 UNIT/1 ML 3ML VIAL SQ SCH ×6 (07:30→17:26)
[2019-02-28 07:48] VITALS: BP 131/68
[2019-02-28] MEDS: FENOFIBRATE 145 MG TAB PO SCH (08:26)
[2019-02-28 08:30] VITALS: BP 131/68
--- NOTE | 2019-02-28 09:08 | NUR ---
Received dietary consult. RD visited pt twice for diet education since admission. Handouts were provided. Please refer to RD notes on 02/26. Thanks.
[2019-02-28 12:01] VITALS: BP 121/70
[2019-02-28 16:00] VITALS: BP 135/77
[2019-02-28] MEDS: ENOXAPARIN SOD INJ 40 MG/0.4 ML SYR SC SCH (16:57)
--- NOTE | 2019-03-01 05:18 | Discharge Summary ---
FINAL DISCHARGE DIAGNOSES: 1. Diabetic ketoacidosis-resolved. 2. Uncontrolled type 2 diabetes. 3. Acute pancreatitis. 4. Acute alcohol abuse. 5. Hyperlipidemia with hypertriglyceridemia. CONSULTANTS: GI and Endocrinology. PHYSICAL EXAMINATION: VITAL SIGNS: Temperature 98.9, pulse 99, respiratory rate 19, blood pressure 135/77, pulse ox is 96% on room air. LAB FINDINGS: Show white count 7.2, hemoglobin 13, hematocrit 40, platelets of 239. Chemistry; sodium 137, potassium 4.3, chloride 99, bicarb 28, anion gap of 14, BUN is 10, creatinine 0.99, glucose 195, calcium is 3.2. LFTs were normal. Lipase level initially was elevated at 141 and then down trended to 22. LDL was undetectable. Triglyceride level was 519, HDL was 30, albumin was 2.8. Urinalysis was negative. Microbiology, blood cultures were negative. IMAGING STUDIES: CT abdomen and pelvis shows acute pancreatitis and hepatic steatosis. Chest x-ray shows no focal pneumonia or pulmonary edema. Repeat CT abdomen and pelvis with IV contrast shows unchanged findings of pancreas that shows pancreatitis. No evidence of necrosis or peripancreatic abscess. Hepatic steatosis seen. HOSPITAL COURSE: A 23-year-old male, very noncompliant with his diabetic medication, has a known history of type 2 diabetes for several years, refused to take any of his oral medications, comes into the ED with complaints of abdominal pain, nausea, vomiting, found to be in DKA. The patient was admitted to the ICU, started on DKA protocol. Endocrinology was consulted. The patient was then eventually transitioned to subcutaneous insulin via long-acting Lantus as well as premeal NovoLog. The patient was on a diabetic diet which he tolerated diet well. A CT imaging findings consistent with acute pancreatitis. The patient had low-grade fever while in the hospital stay, which was very difficult for me to discharge him to home with repeat CT abdomen and pelvis shows no evidence of peripancreatic fluid or any kind of abscess. The patient was then afebrile for more than 36 hours and he was doing well with no complaints. He had no complaints of nausea, vomiting, or and was tolerating diet well with no complaints. At this time, the patient was then evaluated by GI due to the findings of the pancreatitis. No further workup was needed by GI. I also discussed the case with Endocrine and no further workup was needed. The patient was tolerating diet well and he was back to normal baseline prior to being discharged to home. The patient was discharged on long-acting insulin as well as premeal insulin as well as TriCor for his elevated lipid panel. I also discussed with the patient about alcohol cessation for which he verbalized understanding. On the day of discharge, vital signs were stable, labs reviewed and stable. The patient seen and evaluated, examined thoroughly on the day of discharge. No other complaints. The patient verbalized understanding and agreed to plan of care to follow up as an outpatient with the PCP in 1 week, special procedures nurse and GI in about 2 weeks' time. The patient was advised to follow closely in case to modify his diet and weight loss as well. MEDICATIONS: See med reconciliation form. DISPOSITION: Home. CONDITION: Stable. DIET: Heart healthy. In the event of any worsening symptoms, the patient was advised to come back to the ED for further evaluation. Discharge summary took greater than 35 minutes. Once again, the patient was cleared for discharge by all consultants. MD RA Marcos/YUNIOR /[id number]
== END 2019-02-28 17:13 | disposition home or self-care (01) | DRG 438 ==
LOC: ER 21:32 → ERHOLD 02-24 00:49 → ICU 02-24 02:50 → MED/SURG2 02-25 23:34
PROVIDERS: ADMIT Internal Medicine; ATTEND Internal Medicine
DX: K85.20 Alcohol induced acute pancreatitis without necrosis or infection (principal); E11.10 Type 2 diabetes mellitus with ketoacidosis without coma; Z79.4 Long term (current) use of insulin; T38.3X6A Underdosing of insulin and oral hypoglycemic [antidiabetic] drugs, initial encounter; F10.20 Alcohol dependence, uncomplicated; E78.5 Hyperlipidemia, unspecified; Z82.49 Family history of ischemic heart disease and other diseases of the circulatory system; Z83.3 Family history of diabetes mellitus; K76.0 Fatty (change of) liver, not elsewhere classified; E86.0 Dehydration; F17.210 Nicotine dependence, cigarettes, uncomplicated; E11.42 Type 2 diabetes mellitus with diabetic polyneuropathy; J98.01 Acute bronchospasm; R50.9 Fever, unspecified; E78.1 Pure hyperglyceridemia
CPT/HCPCS: 36415; 71045; 74177; 80048; 80053; 80061; 81001; 82150; 82948; 83036; 83690; 83735; 84439; 84443; 85025; 87040; 99284; J1650; J1815; J1817; J2270; J2405; J2543; J3480; J7030; J7050; Q9967

== ENCOUNTER 2019-03-17 15:19 | Emergency (ER) | payer OTHER ==
[~2019-03-17] VITALS: Ht 167.6 cm; Wt 99.8 kg
[~2019-03-17 15:19] MED LIST: [UNRECOGNIZED DRUG - OTHER] PO
[2019-03-17] MEDS ORDERED: HUMALOG100 UNIT/1 (15:38)
[2019-03-17] MEDS ORDERED: LANTUS 3ML100 UNITS/ (15:38)
[2019-03-17] MEDS ORDERED: FENOFIBRATE145 MG (15:38)
--- NOTE | 2019-03-17 16:00 | Diagnostic Imaging Report ---
EXAMINATION: ANKLE 3VIEW LT - HOPD INDICATION: Trauma COMPARISON: None FINDINGS: 3 views of the left ankle demonstrate mild soft tissue swelling along the lateral aspect of the ankle. A small ossific fragment at the lateral malleolus likely represents a lateral ligamentous avulsion injury. Otherwise, no acute fracture or dislocation. The ankle mortise is intact and symmetric. IMPRESSION: Lateral ankle avulsion injury with overlying soft tissue swelling. Signed by: Bhumika Natarajan MD on 03/17/2019 3:57 PM
[2019-03-17 16:45] VITALS: BP 130/79
== END 2019-03-17 16:40 | disposition home or self-care (01) ==
LOC: FSED 15:19
DX: S82.65XA Nondisplaced fracture of lateral malleolus of left fibula, initial encounter for closed fracture (principal); X50.1XXA Overexertion from prolonged static or awkward postures, initial encounter; Y92.830 Public park as the place of occurrence of the external cause
CPT/HCPCS: 99283